=== PATIENT | male | born 1940 | race Caucasian/White ===

== ENCOUNTER 2022-09-22 01:20 | Inpatient (IN) | payer BC, MEDICAID ==
[~2022-09-22] VITALS: Ht 167.6 cm; Wt 67.1 kg
[2022-09-22 01:24] VITALS: BP_SYST 115
--- NOTE | 2022-09-22 01:27 | NUR ---
Note gerardoone in EDM - 09/22/22 at 0147 by [id number] Patient triaged and placed in waiting room. VSS and patient appears in no acute distress at this time. Accompanied by MOTHER, awaiting available bed, and MD notified of need for MSE.
[2022-09-22 01:43] VITALS: BP_SYST 137
[2022-09-22] MEDS ORDERED: NACL 0.9% 1,000 ML IV ONE (01:45)
--- NOTE | 2022-09-22 01:47 | NUR ---
Patient triaged and placed in waiting room. VSS and patient appears in no acute distress at this time. Accompanied by BLS, notified of need for MSE.
[2022-09-22 02:25] LABS: BASOPHILS % (AUTO) 1.2 % (0.0-2.0); EOSINOPHILS # (AUTO) 0.1 K/uL (0.0-0.4); EOSINOPHILS % (AUTO) 1.6 % (0.0-4.0); LYMPHOCYTES # (AUTO) 1.5 K/uL (1.0-5.5); LYMPHOCYTES % (AUTO) 38.7 % (20.5-51.5); MEAN CORPUSCULAR HEMOGLOBIN 30 pg (27-31); MEAN CORPUSCULAR HGB CONC 33 % (32-36); MEAN CORPUSCULAR VOLUME 91 fL (79.0-98.0); MONOCYTES # (AUTO) 0.4 K/uL (0.0-1.0); MONOCYTES % (AUTO) 11.1 % (1.7-9.3); NEUTROPHILS # (AUTO) 1.8 K/uL (1.8-7.7); NEUTROPHILS % (AUTO) 47.4 % (40.0-70.0); PLATELET COUNT (AUTO) 91 K/uL (130-430); RED BLOOD CELL COUNT(AUTO) 3.98 MIL/uL (4.2-6.2); RED CELL DISTRIBUTION WIDTH 16.1 % (9.0-15.0); WHITE BLOOD COUNT (AUTO) 3.8 K/uL (4.8-10.8)
[2022-09-22 02:36] LABS: ANION GAP 10 (5-15); CALCIUM 8.3 mg/dL (8.4-11.0); CHLORIDE 108 mmol/L (98-107); CREATININE 0.66 mg/dL (0.55-1.30); GLUCOSE 95 mg/dL (70-99); UREA NITROGEN, BLOOD 18 mg/dL (8-21)
[2022-09-22 02:42] LABS: ALANINE AMINOTRANSFERASE 22 U/L (12-78); ALBUMIN 3.7 g/dL (3.4-4.8); ALCOHOL, BLOOD 266 mg/dL (<10); ASPARTATE AMINOTRANSFERASE 32 U/L (10-37); LIPASE 113 U/L (73-393); TOTAL BILIRUBIN 0.8 mg/dL (0.0-1.0)
[2022-09-22] MEDS ORDERED: POTASSIUM CHLORIDE 20 MEQ/PKT PACKET PO ONE (03:00)
[2022-09-22] MEDS ORDERED: IBUPROFEN 600 MG TABLET PO ONE (05:30)
--- NOTE | 2022-09-22 07:30 | NUR ---
PT RECEIVED, CARE ASSUMED. PT ASLEEP IN BED. NO ACUTE DISTRESS NOTED. NOTED VITAL SIGNS. WILL CONTINUE TO MONITOR
[2022-09-22] MEDS ORDERED: LORazepam 2 MG/ML VIAL IM ONE (09:00)
--- NOTE | 2022-09-22 09:45 | NUR ---
COVID NASAL SWAB COLLECTED AT BEDSIDE AND SENT TO LAB
--- NOTE | 2022-09-22 10:00 | NUR ---
PT CLEANED. PT IS A/OX4. UPDATED ALL INFORMATION. WILL CONTINUE TO MONITOR
--- NOTE | 2022-09-22 11:51 | NUR ---
PATIENT'S INSURANCE WAS NOT VERIFIED. ADMISSIONS ATTEMPTED TO VERIFY INFORMATION BUT EXCEEDED 1 HR. WILL ADMIT 'SELF-PAY' TO PREVENT DELAY IN CARE.
--- NOTE | 2022-09-22 12:04 | NUR ---
Admit bed requested Patient will be admitted to care of . Admitted to TELE unit. Diagnosis ALCOHOL WITHDRAWAL Inpatient (Yes or No) YES Observation (Yes or No) NO Orientation concerns or request close to nursing station (Yes or No) NO Covid Status NEGATIVE On vent or bipap NO Isolation requirements NO Needs a sitter NO From Home (Yes or if No enter name of facility) HOMELESS Requires Dialysis (Yes or No) NO Med Rec Completed (Yes of No) YES
[2022-09-22] MEDS ORDERED: chlordiazePOXIDE HCL 25 MG CAPSULE PO ONE (12:30)
--- NOTE | 2022-09-22 14:00 | NUR ---
REPORT GIVEN TO NILDA BLANCA. PT PLACED IN ROOM 110B, CONNECTED TO TELE MONITOR.
--- NOTE | 2022-09-22 14:19 | NUR ---
Patient will be admitted to care of NILDA BLANCA. Admitted to unit. Will go to room . Belongings list completed. Complete and up to date summary report printed. SBAR report to be given at bedside with opportunity for questions.
[2022-09-22 14:23] VITALS: BP_SYST 116
[2022-09-22] MEDS ORDERED: LORazepam 2 MG/ML VIAL IVP PRN (14:30)
[2022-09-22] MEDS ORDERED: MAG-AL HYDROX/SIMETH 30 ML UDC PO PRN (14:30)
[2022-09-22 14:57] VITALS: BP_SYST 116
[2022-09-22] MEDS: chlordiazePOXIDE HCL 25 MG CAPSULE PO SCH ×2 (14:57→21:17)
[2022-09-22] MEDS ORDERED: MAG-AL HYDROX/SIMETH 30 ML UDC PO ONE (15:00)
[2022-09-22] MEDS ORDERED: POTASSIUM CHLORIDE 20 MEQ TAB.PRT.SR PO ONE (15:00)
[2022-09-22] MEDS ORDERED: THIAMINE HCL 100 MG TABLET PO ONE (15:00)
[2022-09-22] MEDS ORDERED: PANTOPRAZOLE SODIUM 40 MG/VIAL (PROTONIX) IVP ONE (15:00)
--- NOTE | 2022-09-22 15:00 | NUR ---
pt admitted to tele. pt aox4 mostly pakistani speaking. pt seen by dr mccrary already. pt a0x4. pt verbalized understanding. pt calm and follows commands. pt educated to use call light if he needs assistance.
--- NOTE | 2022-09-22 16:10 | NUR ---
urine collected and sent to lab
[2022-09-22 16:23] LABS: BILIRUBIN,URINE NEGATIVE (NEGATIVE); BLOOD, URINE 2+ (NEGATIVE); CLARITY/URINE CLEAR (CLEAR); COLOR,URINE YELLOW (YELLOW); GLUCOSE,URINE NEGATIVE (NEGATIVE); KETONES,URINE 1+ (NEGATIVE); LEUKOCYTE ESTERASE ,URINE NEGATIVE (NEGATIVE); NITRITE, URINE NEGATIVE (NEGATIVE); PH,URINE 6.5 (5.0-8.0); PROTEIN URINE NEGATIVE (NEGATIVE); UROBILINOGEN,URINE 0.2 (0.2-1.0)
[2022-09-22 16:30] LABS: BACTERIA,URINE FEW /HPF (None Seen); MUCUS,URINE 1+ /LPF (None Seen); WBC,URINE 0-3 /HPF (0-3)
[2022-09-22 16:49] VITALS: BP_SYST 127
[2022-09-22] MEDS ORDERED: cloNIDine HCL 0.2 MG TABLET PO PRN (17:30)
[2022-09-22] MEDS ORDERED: cloNIDine HCL 0.1 MG TABLET PO PRN (17:45)
[2022-09-22] MEDS: QUEtiapine FUMARATE 25 MG TABLET PO SCH (17:54)
[2022-09-22] MEDS: PANTOPRAZOLE SODIUM 40 MG TAB PO SCH (21:21)
[2022-09-22] MEDS: MAGNESIUM OXIDE 400 MG TABLET PO SCH (21:50)
[2022-09-23 06:57] VITALS: BP_SYST 162
[2022-09-23 07:15] LABS: BASOPHILS % (AUTO) 1.1 % (0.0-2.0); EOSINOPHILS # (AUTO) 0.1 K/uL (0.0-0.4); EOSINOPHILS % (AUTO) 2.1 % (0.0-4.0); HEMOGLOBIN 12.7 g/dL (14.0-18.0); LYMPHOCYTES # (AUTO) 0.8 K/uL (1.0-5.5); LYMPHOCYTES % (AUTO) 27.1 % (20.5-51.5); MEAN CORPUSCULAR HEMOGLOBIN 31 pg (27-31); MEAN CORPUSCULAR HGB CONC 33 % (32-36); MEAN CORPUSCULAR VOLUME 92 fL (79.0-98.0); MONOCYTES # (AUTO) 0.3 K/uL (0.0-1.0); MONOCYTES % (AUTO) 10.7 % (1.7-9.3); NEUTROPHILS # (AUTO) 1.8 K/uL (1.8-7.7); PLATELET COUNT (AUTO) 72 K/uL (130-430); RED BLOOD CELL COUNT(AUTO) 4.15 MIL/uL (4.2-6.2); RED CELL DISTRIBUTION WIDTH 16.2 % (9.0-15.0)
[2022-09-23 07:20] LABS: INR 1.1 (0.80-1.20); PROTHROMBIN TIME 11.4 SECS (9.5-12.5)
[2022-09-23 07:33] LABS: ALANINE AMINOTRANSFERASE 19 U/L (12-78); ALBUMIN 3.3 g/dL (3.4-4.8); ANION GAP 10 (5-15); ASPARTATE AMINOTRANSFERASE 20 U/L (10-37); CALCIUM 8.9 mg/dL (8.4-11.0); CHLORIDE 106 mmol/L (98-107); CREATININE 0.63 mg/dL (0.55-1.30); GLUCOSE 98 mg/dL (70-99); TOTAL BILIRUBIN 1.1 mg/dL (0.0-1.0); UREA NITROGEN, BLOOD 15 mg/dL (8-21)
--- NOTE | 2022-09-23 07:36 | NUR ---
pt resting with bed in low position
[2022-09-23 08:00] VITALS: BP_SYST 134
[2022-09-23] MEDS: FOLIC ACID 1 MG TABLET PO SCH (08:34)
[2022-09-23] MEDS: THIAMINE HCL 100 MG TABLET PO SCH (08:35)
[2022-09-23] MEDS: chlordiazePOXIDE HCL 25 MG CAPSULE PO SCH ×3 (08:35→22:08)
[2022-09-23] MEDS: MULTIVITS,CA,MINERALS/IRON/FA 1 TABLET PO SCH (08:35)
[2022-09-23] MEDS: MAGNESIUM OXIDE 400 MG TABLET PO SCH ×2 (08:35→22:08)
[2022-09-23] MEDS: PANTOPRAZOLE SODIUM 40 MG TAB PO SCH ×2 (08:35→22:08)
[2022-09-23] MEDS ORDERED: POTASSIUM CHLORIDE 20 MEQ TAB.PRT.SR PO SCH (09:00)
[2022-09-23 11:27] VITALS: BP_SYST 142
[2022-09-23 12:00] VITALS: BP_SYST 153
--- NOTE | 2022-09-23 15:00 | NUR ---
PT SEEN BY DR MOSQUEDA AT BEDSIDE. PT GIVEN TYLENOL FOR A HEADACHE
[2022-09-23 15:32] VITALS: BP_SYST 151
[2022-09-23] MEDS: QUEtiapine FUMARATE 25 MG TABLET PO SCH (17:18)
[2022-09-23] MEDS: ACETAMINOPHEN 325 MG TABLET PO PRN (17:19)
[2022-09-23] MEDS ORDERED: MAG-AL HYDROX/SIMETH 30 ML UDC PO ONE (17:30)
[2022-09-23 20:24] VITALS: BP_SYST 143
[2022-09-24 06:16] LABS: BASOPHILS % (AUTO) 0.9 % (0.0-2.0); EOSINOPHILS # (AUTO) 0.1 K/uL (0.0-0.4); EOSINOPHILS % (AUTO) 1.8 % (0.0-4.0); HEMATOCRIT 35.6 % (36-54); HEMOGLOBIN 12.2 g/dL (14.0-18.0); LYMPHOCYTES % (AUTO) 31.9 % (20.5-51.5); MEAN CORPUSCULAR HEMOGLOBIN 31 pg (27-31); MEAN CORPUSCULAR HGB CONC 34 % (32-36); MEAN CORPUSCULAR VOLUME 91 fL (79.0-98.0); MONOCYTES # (AUTO) 0.4 K/uL (0.0-1.0); MONOCYTES % (AUTO) 12.6 % (1.7-9.3); NEUTROPHILS # (AUTO) 1.7 K/uL (1.8-7.7); NEUTROPHILS % (AUTO) 52.8 % (40.0-70.0); PLATELET COUNT (AUTO) 69 K/uL (130-430); RED BLOOD CELL COUNT(AUTO) 3.92 MIL/uL (4.2-6.2); RED CELL DISTRIBUTION WIDTH 15.5 % (9.0-15.0); WHITE BLOOD COUNT (AUTO) 3.2 K/uL (4.8-10.8)
[2022-09-24 07:01] LABS: ANION GAP 11 (5-15); CALCIUM 8.8 mg/dL (8.4-11.0); CHLORIDE 107 mmol/L (98-107); CREATININE 0.67 mg/dL (0.55-1.30); GLUCOSE 99 mg/dL (70-99); UREA NITROGEN, BLOOD 15 mg/dL (8-21)
--- NOTE | 2022-09-24 08:00 | NUR ---
Opening Notes Patient is Aox4. Ambulatory. No ss of distress noted. Patient is eating breakfast, sitting at bedside. Patient denies severe pain. NO SOB noted. Vital signs obtained, as documented. IV patent. Bed is locked, alarm on, and at lowest position. Call light within reach.
[2022-09-24 08:11] VITALS: BP_SYST 152
--- NOTE | 2022-09-24 08:13 | NUR ---
Pt went to sleep about 1130 PM after he requested medicine to help him relax. I put the bed alarm on, I did hourly checks and the pt was sound asleep and didnt complain of any pain or discomfort during the shift.
[2022-09-24] MEDS: PANTOPRAZOLE SODIUM 40 MG TAB PO SCH ×2 (08:50→21:57)
[2022-09-24] MEDS: MULTIVITS,CA,MINERALS/IRON/FA 1 TABLET PO SCH (08:50)
[2022-09-24] MEDS: THIAMINE HCL 100 MG TABLET PO SCH (08:50)
[2022-09-24] MEDS: MAGNESIUM OXIDE 400 MG TABLET PO SCH ×2 (08:50→21:57)
[2022-09-24] MEDS: chlordiazePOXIDE HCL 25 MG CAPSULE PO SCH ×3 (08:51→21:57)
[2022-09-24] MEDS: FOLIC ACID 1 MG TABLET PO SCH (08:51)
[2022-09-24] MEDS: ACETAMINOPHEN 325 MG TABLET PO PRN ×2 (08:56→16:51)
--- NOTE | 2022-09-24 09:00 | NUR ---
notes Patient requested Tylenol for headache. pain medication administered with am medications. no ss of distress noted. bed linens have been changed. Bed is locked, alarm on, and at lowest position. Call light within reach.
[2022-09-24 11:27] VITALS: BP_SYST 113
[2022-09-24] MEDS ORDERED: LOPERAMIDE HCL 2 MG CAPSULE PO PRN (11:30)
--- NOTE | 2022-09-24 11:45 | NUR ---
Assessment re: alcohol withdrawal The patient is an 82-year-old male who is alert and oriented. I completed an initial assessment at bedside. The patient is Gambian speaking, there for I used the assistance of his bedside nurse, Flor ANDERSON, who translated on my behalf. The patient was resting in bed, but was in agreement to speaking with me. The patient states he is homeless in the [place] area. Per patient, he stays off of [place] and [facility]. 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 The patient states he was using no assistive devices. He was independent with his care needs and utilizes the local bus system to get around. The patient states he has been residing on the streets of [place] for over a month and a half. The patient states he does not have a support system. Per patient, his daughters have indicated they no longer want to be a part of his issues and will not invite him to stay at their homes. 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 His medical needs are met at [facility]. The discharge plan is to go to a long term or SNF placement if appropriate. The patient was explained the barriers that may affect SNF placement, due to his living arrangements and drinking consumption. The patient was advised that at time of discharge, he will be assessed for appropriate needs and services. Per patient, there is a need for a transport back to his area of choice. Prior to living, I discussed his social service consult related to homelessness and alcohol consumption. The patient states he does not drink daily. He states her takes 6-7 shots every other day. Per patient, his choice of alcohol is Tequila. I offered resources related to sobriety and shelters. The patient was accepting of the information related to housing. He was advised that he would need to call and inquire about long term availability. A homeless waiver form was also completed placed in his physical chart. The patient advised that he will be offered weather appropriate clothing and a sack meal. Addendum: 09/24/22 at 1603 by Jana STEPHENS Amended: Links added.
--- NOTE | 2022-09-24 12:00 | NUR ---
Notes patient is eating lunch. denies severe pain. no ss of distress noted. Patient is stable. All safety precautions in place and call light within reach.
[2022-09-24 15:17] VITALS: BP_SYST 120
--- NOTE | 2022-09-24 16:00 | NUR ---
Notes Patient is resting. no ss of distress noted. denies severe pain. No change from previous assessment. safety precautions in place and call light within reach.
[2022-09-24] MEDS: QUEtiapine FUMARATE 25 MG TABLET PO SCH (17:30)
--- NOTE | 2022-09-24 18:50 | NUR ---
closing notes Patient is resting, finished eating dinner. Dr. Boogie saw and spoke to patient at bedside. Denies pain. No ss of distress noted. Breathing is even and nonlabored, on room air. Iv patent. Patient is stable. All needs met. Bed is locked, alarm on, and at lowest position. call light within reach.
[2022-09-24 20:00] VITALS: BP_SYST 138
[2022-09-25] VITALS: BP_SYST 125
[2022-09-25 07:26] LABS: BASOPHILS % (AUTO) 0.7 % (0.0-2.0); EOSINOPHILS # (AUTO) 0.1 K/uL (0.0-0.4); EOSINOPHILS % (AUTO) 1.6 % (0.0-4.0); HEMATOCRIT 34.6 % (36-54); HEMOGLOBIN 11.8 g/dL (14.0-18.0); LYMPHOCYTES # (AUTO) 0.8 K/uL (1.0-5.5); LYMPHOCYTES % (AUTO) 19.5 % (20.5-51.5); MEAN CORPUSCULAR HEMOGLOBIN 31 pg (27-31); MEAN CORPUSCULAR HGB CONC 34 % (32-36); MEAN CORPUSCULAR VOLUME 92 fL (79.0-98.0); MONOCYTES # (AUTO) 0.4 K/uL (0.0-1.0); MONOCYTES % (AUTO) 9.9 % (1.7-9.3); NEUTROPHILS % (AUTO) 68.3 % (40.0-70.0); PLATELET COUNT (AUTO) 66 K/uL (130-430); RED BLOOD CELL COUNT(AUTO) 3.75 MIL/uL (4.2-6.2); RED CELL DISTRIBUTION WIDTH 15.7 % (9.0-15.0); WHITE BLOOD COUNT (AUTO) 4.3 K/uL (4.8-10.8)
[2022-09-25 07:30] LABS: ALBUMIN 3.3 g/dL (3.4-4.8); ANION GAP 10 (5-15); ASPARTATE AMINOTRANSFERASE 17 U/L (10-37); CALCIUM 8.5 mg/dL (8.4-11.0); CHLORIDE 106 mmol/L (98-107); CREATININE 0.77 mg/dL (0.55-1.30); GLUCOSE 92 mg/dL (70-99); TOTAL BILIRUBIN 0.5 mg/dL (0.0-1.0); UREA NITROGEN, BLOOD 18 mg/dL (8-21)
[2022-09-25 08:36] LABS: ALANINE AMINOTRANSFERASE 19 U/L (12-78)
[2022-09-25] MEDS: chlordiazePOXIDE HCL 25 MG CAPSULE PO SCH (08:55)
[2022-09-25] MEDS: FOLIC ACID 1 MG TABLET PO SCH (08:57)
[2022-09-25] MEDS: PANTOPRAZOLE SODIUM 40 MG TAB PO SCH (08:58)
[2022-09-25] MEDS: MAGNESIUM OXIDE 400 MG TABLET PO SCH (08:59)
[2022-09-25] MEDS: MULTIVITS,CA,MINERALS/IRON/FA 1 TABLET PO SCH (09:00)
[2022-09-25] MEDS: THIAMINE HCL 100 MG TABLET PO SCH (09:01)
[2022-09-25 11:33] VITALS: BP_SYST 134
--- NOTE | 2022-09-25 14:17 | NUR ---
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 PROVIDING UBER FOR PATIENT
== END 2022-09-25 14:35 | disposition home or self-care (01) | DRG 392 ==
LOC: EDBD 01:20 → SED 01:20 → STU 12:03 → SMU 14:15
PROVIDERS: ADMIT Internal Medicine; ATTEND Internal Medicine
DX: K29.20 Alcoholic gastritis without bleeding (principal); F10.239 Alcohol dependence with withdrawal, unspecified; D61.818 Other pancytopenia; R65.10 Systemic inflammatory response syndrome (SIRS) of non-infectious origin without acute organ dysfunction; F10.229 Alcohol dependence with intoxication, unspecified; E87.6 Hypokalemia; Z20.822 Contact with and (suspected) exposure to COVID-19; I10 Essential (primary) hypertension; Z59.00 Homelessness unspecified; Z87.81 Personal history of (healed) traumatic fracture
CPT/HCPCS: 36415; 70450-TC; 71045; 71260-TC; 76376; 80048; 80053; 81000; 83690; 84484; 85025; 85610-TC; 93005; 96361; 96374; 97116-GP; 97163-GP; 99285; C9113; G0378; G0482; J2060; Q9967